=== PATIENT | female | born 2000 | race Caucasian/White ===

== ENCOUNTER 2021-01-05 08:44 | Emergency (ER) | payer BC ==
[~2021-01-05] VITALS: Ht 160 cm; Wt 61.2 kg
--- NOTE | 2021-01-05 08:44 | NUR ---
Patient triaged and placed in waiting room. VSS and patient appears in no acute distress at this time. Accompanied by SELF, awaiting available bed, and MD notified of need for MSE.
[2021-01-05 08:45] VITALS: BP_SYST 119
--- NOTE | 2021-01-05 09:30 | NUR ---
Patient to ER bed 8 to gown for evaluation. Side rails up.
--- NOTE | 2021-01-05 09:35 | NUR ---
PT CAME IN FROM HOME C/O "BUTT PLUG" STUCK IN RECTUM. WAS UNABLE TO REMOVE AT HOME. DENIES PAIN UPON ARRIVAL, AAOX4, AMBULATORY, V/S STABLE
--- NOTE | 2021-01-05 09:45 | NUR ---
AT THE BEDSIDE WITH ER DR. ROGERS FOR DIGITAL EXTRACTION OF FOREIGN BODY IN RECTUM, PT TOLERATED WELL, FB REMOVED.
[2021-01-05 10:01] VITALS: BP_SYST 119
--- NOTE | 2021-01-05 10:01 | NUR ---
Patient given written and verbal discharge instructions and verbalizes understanding. ER MD discussed with patient the results and treatment provided. Patient in stable condition. ID arm band removed. Rx of NONE given. Patient educated on pain management and to follow up with PMD. Pain Scale 0/10. Opportunity for questions provided and answered. Medication side effect fact sheet provided.
--- NOTE | 2021-01-05 10:02 | NUR ---
Note undone in EDM - 01/05/21 at 1002 by [email or web address] Patient given written and verbal discharge instructions and verbalizes understanding. ER discussed with patient the results and treatment provided. Patient in stable condition. ID arm band removed. NO Rx given. Patient educated on pain management and to follow up with PMD. Pain Scale 0/10. Opportunity for questions provided and answered. Medication side effect fact sheet provided.
== END 2021-01-05 10:01 | disposition home or self-care (01) ==
LOC: SED 08:44
DX: T18.5XXA Foreign body in anus and rectum, initial encounter (principal); X58.XXXA Exposure to other specified factors, initial encounter; Y93.89 Activity, other specified; Y92.89 Other specified places as the place of occurrence of the external cause; Y99.8 Other external cause status
CPT/HCPCS: 74018; 81025; 99284